=== PATIENT | female | born 1990 | race Caucasian/White ===

== ENCOUNTER 2020-11-24 19:25 | Emergency (ER) | payer OTHER ==
[~2020-11-24 19:25] MED LIST: BACTRIM DS TAB1 EACH PO; KLONOPIN TAB 00.5 MG PO; LEVAQUIN750 MG PO; ZITHROMAX250 MG PO
[2020-11-24 21:11] LABS: HEMOGLOBIN 13.7 gm/dl (12.3-15.3); RED BLOOD COUNT 4.41 M/UL (4.00-5.10); WHITE BLOOD COUNT 11.4 K/UL (4.5-11.0)
[2020-11-24 21:35] LABS: BUN/CREATININE RATIO 11 (0-10)
[2020-11-24] MEDS ORDERED: ZOFRAN4 MG PO (23:51)
[2020-11-24] MEDS ORDERED: OMNICEF 300 MG300 MG PO (23:51)
== END 2020-11-25 00:06 | disposition home or self-care (01) ==
LOC: ER1 19:25
PROVIDERS: Family Medicine
DX: N12 Tubulo-interstitial nephritis, not specified as acute or chronic (principal); N28.89 Other specified disorders of kidney and ureter; Z88.0 Allergy status to penicillin
CPT/HCPCS: 80053; 81001; 82150; 83690; 84703; 85025; 96365; 96375; 99284; J0696; J1885; Q9967

== ENCOUNTER → 2021-05-04 | Outpatient (CLI) | payer OTHER ==
[~2021-05-04] MED LIST changes: +OMNICEF 300 MG300 MG PO; +ZOFRAN4 MG PO
== END ==
LOC: ECHO 08:54
DX: E04.9 Nontoxic goiter, unspecified (principal); R60.0 Localized edema
CPT/HCPCS: ECHO; 76536; 93306; 93970

== ENCOUNTER 2021-06-19 14:19 | Emergency (ER) | payer OTHER ==
[2021-06-19 15:42] LABS: RED BLOOD COUNT 4.87 M/UL (4.00-5.10); WHITE BLOOD COUNT 6.5 K/UL (4.5-11.0)
[2021-06-19 16:03] LABS: BUN/CREATININE RATIO 11 (0-10)
[2021-06-19] MEDS ORDERED: TESSALON PERLE100 MG PO (16:49)
[2021-06-19] MEDS ORDERED: IBUPROFEN800 MG PO (16:49)
[2021-06-19] MEDS ORDERED: PROAIR DIGIHAL90 MCG INH (16:49)
[2021-06-19] MEDS ORDERED: NASONEX17 GM (16:49)
== END 2021-06-19 17:20 | disposition home or self-care (01) ==
LOC: ER1 14:19
PROVIDERS: Physician Assistant
DX: U07.1 COVID-19 (principal)
CPT/HCPCS: 71045; 80053; 81001; 83605; 84703; 85025; 87040; 99283; J7030; U0002

== ENCOUNTER → 2022-04-14 | Outpatient (CLI) | payer OTHER ==
[~2022-04-14] MED LIST changes: +IBUPROFEN800 MG PO; +NASONEX17 GM; +PROAIR DIGIHAL90 MCG INH; +TESSALON PERLE100 MG PO
[2022-04-14 16:05] LABS: BORDETELLA PARAPERTUSSIS Not Detected (Not Detectd); BORDETELLA PERTUSSIS Not Detected (Not Detectd); CHLAMYDIA PNEUMONIAE Not Detected (Not Detectd); CORONAVIRUS HKU1 Not Detected (Not Detectd); CORONAVIRUS NL63 Not Detected (Not Detectd); CORONAVIRUS OC43 Not Detected (Not Detectd); CORONOAVIRUS 229E Not Detected (Not Detectd); HUMAN METAPNEUMOVIRUS Not Detected (Not Detectd); INFLUENZA A Not Detected (Not Detectd); INFLUENZA B Not Detected (Not Detectd); MYCOPLASMA PNEUMONIAE Not Detected (Not Detectd); PARAINFLUENZA VIRUS 1 Not Detected (Not Detectd); PARAINFLUENZA VIRUS 2 Not Detected (Not Detectd); PARAINFLUENZA VIRUS 3 Not Detected (Not Detectd); PARAINFLUENZA VIRUS 4 Not Detected (Not Detectd); RESPIRATORY SYNCYTIAL VIRUS Not Detected (Not Detectd)
[2022-04-14 17:05] LABS: HUMAN RHINOVIRUS/ENTEROVIRUS DETECTED (Not Detectd); SARS-CoV-2 NOT DETECTED (Not Detectd)
== END ==
LOC: LAB 15:33
PROVIDERS: Nurse Practitioner Primary Care
DX: R50.9 Fever, unspecified (principal); Z20.822 Contact with and (suspected) exposure to COVID-19
CPT/HCPCS: 87633